=== PATIENT | female | born 1945 | race Two or more races ===

== ENCOUNTER 2019-07-02 11:02 | Outpatient (CLI) | payer OTHER | END 2019-07-02 11:11 | disposition home or self-care (01) | LOC: EDBD 11:02 → NUCLEAR 11:02 | DX: M25.50 Pain in unspecified joint (principal) | CPT/HCPCS: 78315; A9503 ==

== ENCOUNTER 2019-11-11 08:54 | Outpatient (CLI) | payer OTHER | END 2019-11-11 09:09 | disposition home or self-care (01) | LOC: NUCLEAR 08:54 | PROVIDERS: ATTEND Orthopaedic Surgery | DX: M25.561 Pain in right knee (principal); M25.551 Pain in right hip | CPT/HCPCS: 78315; A9531 ==

== ENCOUNTER 2019-11-11 09:35 | Outpatient (CLI) | payer OTHER | END 2019-11-11 13:03 | disposition home or self-care (01) | LOC: LAB 09:35 | PROVIDERS: ATTEND Orthopaedic Surgery | DX: M81.8 Other osteoporosis without current pathological fracture (principal); E55.9 Vitamin D deficiency, unspecified; E21.2 Other hyperparathyroidism; E88.89 Other specified metabolic disorders; E56.1 Deficiency of vitamin K; M85.88 Other specified disorders of bone density and structure, other site; D64.89 Other specified anemias; M06.4 Inflammatory polyarthropathy; E03.8 Other specified hypothyroidism ==

== ENCOUNTER 2019-11-21 13:43 | Outpatient (CLI) | payer OTHER | END 2019-11-21 13:49 | disposition home or self-care (01) | LOC: RAD 13:43 | PROVIDERS: ATTEND Orthopaedic Surgery | DX: M25.551 Pain in right hip (principal) ==

== ENCOUNTER 2019-12-17 11:33 | Outpatient (CLI) | payer OTHER ==
[~2019-12-17 11:33] MED LIST: TRAMADOL HCL50 MG PO
== END 2019-12-17 11:50 | disposition home or self-care (01) ==
LOC: NUCLEAR 11:33
PROVIDERS: ATTEND Orthopaedic Surgery
DX: M25.561 Pain in right knee (principal)
CPT/HCPCS: 78802; A9556

== ENCOUNTER 2020-04-17 07:36 | Day surgery (SDC) | payer OTHER ==
[~2020-04-17 07:36] MED LIST changes: +NORVASC2.5 M1 PO; +SIMVASTATIN5 MG PO; +SYNTHROID88 MCG PO; +XANAX1 MG PO
== END 2020-04-17 13:55 | disposition home or self-care (01) ==
LOC: CIR.AMB 07:36
PROVIDERS: ATTEND Anesthesiology Pain Medicine
DX: M51.26 Other intervertebral disc displacement, lumbar region (principal); M47.26 Other spondylosis with radiculopathy, lumbar region; Z20.828 Contact with and (suspected) exposure to other viral communicable diseases

== ENCOUNTER 2021-09-16 10:05 | Outpatient (CLI) | payer OTHER | END 2021-09-17 15:14 | disposition home or self-care (01) | LOC: RAD 10:05 | DX: Z96.651 Presence of right artificial knee joint (principal) ==

== ENCOUNTER 2021-10-06 09:06 | Outpatient (CLI) | payer OTHER | END 2021-10-06 09:26 | disposition home or self-care (01) | LOC: TOM 09:06 | DX: R19.4 Change in bowel habit (principal); K62.5 Hemorrhage of anus and rectum; Z96.641 Presence of right artificial hip joint; M54.50 Low back pain, unspecified ==